=== PATIENT | female | born 1995 | race Caucasian/White ===

== ENCOUNTER 2018-07-08 11:51 | Emergency (ER) | payer BC ==
--- NOTE | 2018-07-08 13:26 | UC ---
Throat Pain/Nasal Shiv HPI - HPI Summary HPI Summary: 22 yo female presents with sore throat for the last 4 days. She felt feverish last night, but did not take her temperature. She says that she has had strep in the past and this feels the same. She has not been taking anything OTC for her discomfort. Denies cough, SOB, rash. - History of Current Complaint Stated Complaint: SORE THROAT Time Seen by Provider: 07/08/18 13:25 Hx Obtained From: Patient Onset/Duration: Gradual Onset Severity: Moderate Pain Intensity: 5 Pain Scale Used: 0-10 Numeric - Allergies/Home Medications Allergies/Adverse Reactions: Allergies Allergy/AdvReac Type Severity Reaction Status Date / Time No Known Allergies Allergy Verified 07/08/18 13:24 Home Medications: Home Medications Norethindrone-E.estradiol-Iron [Rosario Fe 10/17] 1 tab PO DAILY 07/08/18 [History Confirmed 07/08/18] Otc Sore Throat Med 1 PRN 07/08/18 [History] PMH/Surg Hx/FS Hx/Imm Hx - Additional Past Medical History Additional PMH: None - Surgical History Surgical History: None - Family History Known Family History: Positive: None - Social History Occupation: Student Lives: Dormitory/Roommates Alcohol Use: Occasionally Substance Use Type: None Smoking Status (MU): Never Smoked Tobacco Review of Systems Constitutional: Negative Skin: Negative Eyes: Negative ENT: Sore Throat Respiratory: Negative Cardiovascular: Negative Gastrointestinal: Negative Neurovascular: Negative Neurological: Negative Psychological: Negative All Other Systems Reviewed And Are Negative: Yes Physical Exam - Summary Physical Exam Summary: GENERAL: NAD. WDWN. No pain distress. SKIN: No rashes, sores, lesions, or open wounds. HEENT: Head: AT/NC Eyes: EOM intact. Conjunctiva clear without inflammation or discharge. Ears: Hearing grossly normal. TMs intact, no bulging, erythema, or edema. Nose: Nasal mucosa pink and moist. NTTP maxillary and frontal sinus. Throat: Posterior oropharynx without exudates, erythema, or tonsillar enlargement. Uvula midline. NECK: Supple. Nontender. No lymphadenopathy. CHEST: CTAB. No r/r/w. No accessory muscle use. Breathing comfortably and in no distress. CV: RRR. Without m/r/g. Pulses intact. Cap refill <2seconds NEURO: Alert. PSYCH: Age appropriate behavior. Triage Information Reviewed: Yes Vital Signs: Vital Signs: Temp Pulse Resp BP Pulse Ox 99 F 93 18 111/68 97 07/08/18 13:26 07/08/18 13:26 07/08/18 13:26 07/08/18 13:26 07/08/18 13:26 Laboratory Tests 07/08/18 13:41 Group A Strep Rapid Negative Vital Signs Reviewed: Yes Throat Pain/Nasal Course/Dx - Course Course Of Treatment: Discussed with pt that her POC strep is negative, her exam is WNL, and her symptoms are likely viral. She is requesting antibiotic therapy. - Differential Dx/Diagnosis Provider Diagnoses: Pharyngitis Discharge - Sign-Out/Discharge Documenting (check all that apply): Patient Departure All imaging exams completed and their final reports reviewed: No Studies - Discharge Plan Condition: Stable Disposition: HOME Prescriptions: Amoxicillin PO (*) [Amoxicillin 500 MG CAP*] 500 mg PO Q12H #14 cap Magic Mouth Was-MARIANO/MAAL/LIDO* 5 ml SWISH SWAL TID PRN #100 ml PRN Reason: Pain Patient Education Materials: Pharyngitis (ED) Forms: *School Release Referrals: No Primary Care Phys,NOPCP [Primary Care Provider] - Additional Instructions: If you develop a fever, shortness of breath, chest pain, new or worsening symptoms - please call your PCP or go to the ED. - Billing Disposition and Condition Condition: STABLE Disposition: Home - Attestation Statements Provider Attestation: Chart reviewed. I was available for consult. I did not see this patient and was not involved in any disposition or treatment decisions.
[2018-07-08 13:32] VITALS: BP 111/68
== END 2018-07-08 14:08 | disposition home or self-care (01) ==
LOC: UCCORT 11:51
DX: J02.9 Acute pharyngitis, unspecified (principal)
CPT/HCPCS: 87651; 99202; G0463